=== PATIENT | female | born 1965 | race African-American/Black ===

== ENCOUNTER 2016-10-21 10:17 | Emergency (ER) | payer OTHER ==
[~2016-10-21] VITALS: Ht 167.6 cm; Wt 99.8 kg
[2016-10-21 10:17] VITALS: BP 170/103
[~2016-10-21 10:17] MED LIST: ACCUPRIL40 MG; DIPHENHYDRAMINE25 M3; GLUCOPHAGE1000 MG; HYDROCHLOROTH12.5 MG PO; HYDROCODON-ACE1 EA13; IBUPROFEN 600600 M1 PO; LANTUS SUBQ; NORCO 5-325 TA1 EACH PO; PERCOCET 5-3251 EACH PO; TRIAMCINOLONE A15 G1 TP; VALIUM5 MG PO
[2016-10-21] MEDS ORDERED: TOBREX3.5 GM OP ×3 (10:36→10:41)
[2016-10-21] MEDS ORDERED: AUGMENTIN 875-1 EACH PO ×3 (10:36→10:41)
== END 2016-10-21 11:26 | disposition home or self-care (01) ==
LOC: ER 10:17
DX: H01.001 Unspecified blepharitis right upper eyelid (principal); I10 Essential (primary) hypertension; E11.9 Type 2 diabetes mellitus without complications; Z88.8 Allergy status to other drugs, medicaments and biological substances

== ENCOUNTER 2016-12-26 14:35 | Emergency (ER) | payer OTHER ==
[~2016-12-26] VITALS: Ht 162.6 cm; Wt 76.7 kg
[~2016-12-26 14:35] MED LIST changes: +AUGMENTIN 875-1 EACH PO; +TOBREX3.5 GM OP
[2016-12-26] MEDS ORDERED: PREDNISONE 10 M10 MG PO (14:43)
[2016-12-26 15:00] VITALS: BP 132/89
== END 2016-12-26 15:01 | disposition home or self-care (01) ==
LOC: ER 14:35
DX: M10.9 Gout, unspecified (principal); M79.671 Pain in right foot; I10 Essential (primary) hypertension; E11.9 Type 2 diabetes mellitus without complications; G89.29 Other chronic pain; M54.9 Dorsalgia, unspecified; Z88.8 Allergy status to other drugs, medicaments and biological substances; Z79.4 Long term (current) use of insulin

== ENCOUNTER 2018-06-22 15:50 | Emergency (ER) | payer OTHER ==
[~2018-06-22] VITALS: Ht 165.1 cm; Wt 78.9 kg
[~2018-06-22 15:50] MED LIST changes: +PREDNISONE 10 M10 MG PO
[2018-06-22 17:25] LABS: BASOPHILS 0.7 % (0.0-2.0); EOSINOPHILS 2.6 % (0.0-3.0); HEMATOCRIT 38.1 % (37.0-47.0); HEMOGLOBIN 12.7 gm/dL (12.0-15.0); LYMPHOCYTES 44.4 % (24.0-44.0); MCH 27.4 pg (26.0-34.0); MCHC 33.4 g/dL (28.0-37.0); MONOCYTES 8.9 % (1.0-8.0); PLATELET COUNT 278 thou/uL (150-400); POLYS 43.4 % (36.0-66.0); RBC 4.64 mil/uL (4.20-5.00); RDW 14.5 % (10.5-14.5); WBC 9.2 thou/uL (4.0-11.0)
[2018-06-22 17:33] LABS: CALCIUM 9.2 mg/dL (8.5-10.1); CREATININE 0.9 mg/dL (0.6-1.0); POTASSIUM 3.2 mmol/L (3.5-5.1)
[2018-06-22 17:39] LABS: ALBUMIN 3.5 g/dL (3.4-5.0); TOTAL BILIRUBIN 0.6 mg/dL (<0.1-1.0); TOTAL PROTEIN 7.7 g/dL (6.4-8.2)
[2018-06-22] MEDS ORDERED: KEFLEX500 M1 PO (18:48)
[2018-06-22] MEDS ORDERED: NAPROSYN500 MG PO (18:48)
[2018-06-22 19:02] VITALS: BP 142/80
== END 2018-06-22 19:04 | disposition home or self-care (01) ==
LOC: ER 15:50
PROVIDERS: Physician Assistant
DX: L03.316 Cellulitis of umbilicus (principal); I10 Essential (primary) hypertension; E11.9 Type 2 diabetes mellitus without complications; M54.9 Dorsalgia, unspecified; G89.29 Other chronic pain; Z79.4 Long term (current) use of insulin; Z88.8 Allergy status to other drugs, medicaments and biological substances; Z90.710 Acquired absence of both cervix and uterus

== ENCOUNTER 2018-12-10 13:48 | Emergency (ER) | payer OTHER ==
[~2018-12-10] VITALS: Ht 165.1 cm; Wt 74.4 kg
[~2018-12-10 13:48] MED LIST changes: +KEFLEX500 M1 PO; +NAPROSYN500 MG PO
[2018-12-10 14:23] LABS: HEMATOCRIT 42.2 % (37.0-47.0); MCH 27.4 pg (26.0-34.0); MCHC 33.1 g/dL (28.0-37.0); MCV 82.7 fL (80.0-100.0); RBC 5.11 mil/uL (4.20-5.00); WBC 10.1 thou/uL (4.0-11.0)
[2018-12-10 14:32] LABS: CALCIUM 10.1 mg/dL (8.5-10.1); CREATININE 1.1 mg/dL (0.6-1.0); POTASSIUM 3.5 mmol/L (3.5-5.1)
[2018-12-10 16:00] VITALS: BP 124/74
--- NOTE | 2018-12-10 16:12 | EKG ---
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 : 1965 Requested By: Dipak Oscar Order Number: [id number] MD: Delio Jordan Measurements Intervals [place] Rate: 120 P: 31 AR: 110 QRS: -1 QRSD: 74 T: 13 QT: 318 QTc: 450 Interpretive Statements Sinus tachycardia LVH by voltage Compared to ECG 11/22/2010 19:36:08 Left ventricular hypertrophy now present Electronically Signed On 12-10-2018 16:12:22 CDT by Delio Jordan [email or web address] ��������������������������������������������� <ELECTRONICALLY SIGNED> ���������������������������������������� By: Delio Jordan MD ��������������������������������������������� 12/10/18 1612 1427 1427 MD WALLACE Taveras
== END 2018-12-10 17:10 | disposition home or self-care (01) ==
LOC: ER 13:48
PROVIDERS: Emergency Medicine
DX: M54.5 Low back pain (principal); G89.29 Other chronic pain; I10 Essential (primary) hypertension; E11.9 Type 2 diabetes mellitus without complications; Z88.1 Allergy status to other antibiotic agents; Z79.4 Long term (current) use of insulin

== ENCOUNTER 2019-10-08 10:17 | Inpatient (IN) | payer OTHER | END 2019-10-14 16:00 | disposition home health service (06) | DRG 280 | LOC: ER 10:17 → EROBS 12:55 → 3W 19:35 → 2N 10-11 10:27 | PROVIDERS: ADMIT Internal Medicine | PROC: B216YZZ Fluoroscopy of Right and Left Heart using Other Contrast (ICD-10-PCS; principal; 2019-10-11) | PROC: B2151ZZ Fluoroscopy of Left Heart using Low Osmolar Contrast (ICD-10-PCS; principal; 2019-10-11) | PROC: 4A023N7 Measurement of Cardiac Sampling and Pressure, Left Heart, Percutaneous Approach (ICD-10-PCS; principal; 2019-10-11) | DX: I21.4 Non-ST elevation (NSTEMI) myocardial infarction (principal); J96.01 Acute respiratory failure with hypoxia; I50.21 Acute systolic (congestive) heart failure; N17.0 Acute kidney failure with tubular necrosis; I42.9 Cardiomyopathy, unspecified; I13.0 Hypertensive heart and chronic kidney disease with heart failure and stage 1 through stage 4 chronic kidney disease, or unspecified chronic kidney disease; R91.8 Other nonspecific abnormal finding of lung field; R79.89 Other specified abnormal findings of blood chemistry; M54.9 Dorsalgia, unspecified; E78.5 Hyperlipidemia, unspecified; E11.22 Type 2 diabetes mellitus with diabetic chronic kidney disease; G89.4 Chronic pain syndrome; W18.39XA Other fall on same level, initial encounter; E11.649 Type 2 diabetes mellitus with hypoglycemia without coma; N18.9 Chronic kidney disease, unspecified; Z03.818 Encounter for observation for suspected exposure to other biological agents ruled out; Z88.1 Allergy status to other antibiotic agents; Z79.84 Long term (current) use of oral hypoglycemic drugs; Z79.899 Other long term (current) drug therapy; Y93.89 Activity, other specified; Y92.89 Other specified places as the place of occurrence of the external cause; Y99.8 Other external cause status ==

== ENCOUNTER → 2019-11-11 | Outpatient (CLI) | payer OTHER ==
[~2019-11-11] MED LIST changes: +ACETAMINOPHEN325 M1 PO; +CEFUROXIME500 MG PO; +COREG6.25 MG PO; +KLOR-CON 10 ER10 MEQ PO; +LIPITOR40 MG PO; +LISINOPRIL5 MG PO; +TORSEMIDE10 MG PO; +TRADJENTA5 MG PO
== END ==
LOC: SJCVC 13:28
PROVIDERS: ATTEND Internal Medicine
DX: R94.31 Abnormal electrocardiogram [ECG] [EKG] (principal); I42.8 Other cardiomyopathies; I11.0 Hypertensive heart disease with heart failure; I50.22 Chronic systolic (congestive) heart failure; E11.9 Type 2 diabetes mellitus without complications; E78.5 Hyperlipidemia, unspecified; I25.2 Old myocardial infarction; Z79.899 Other long term (current) drug therapy; Z82.49 Family history of ischemic heart disease and other diseases of the circulatory system

== ENCOUNTER → 2020-01-14 | Outpatient (CLI) | payer OTHER | LOC: SJCVCIMAG 07:21 | PROVIDERS: ATTEND Internal Medicine | DX: I08.8 Other rheumatic multiple valve diseases (principal); I11.0 Hypertensive heart disease with heart failure; I50.22 Chronic systolic (congestive) heart failure; I42.8 Other cardiomyopathies; I25.2 Old myocardial infarction; E11.9 Type 2 diabetes mellitus without complications; Z79.899 Other long term (current) drug therapy ==

== ENCOUNTER → 2020-04-21 | Outpatient (CLI) | payer OTHER | LOC: SJCVC 14:11 | PROVIDERS: ATTEND Internal Medicine | DX: R94.31 Abnormal electrocardiogram [ECG] [EKG] (principal); I11.0 Hypertensive heart disease with heart failure; I50.22 Chronic systolic (congestive) heart failure; E78.5 Hyperlipidemia, unspecified; E11.9 Type 2 diabetes mellitus without complications; I42.9 Cardiomyopathy, unspecified; I25.2 Old myocardial infarction; Z79.899 Other long term (current) drug therapy ==

== ENCOUNTER 2020-05-31 19:25 | Inpatient (IN) | payer OTHER ==
[~2020-05-31] VITALS: Ht 165.1 cm; Wt 73.0 kg
[2020-05-31 19:37] VITALS: BP 170/80
[2020-05-31 19:52] LABS: ABSOLUTE NEUTROPHILS 3.3 thou/uL (1.4-8.2); BASOPHILS 1.1 % (0.0-2.0); HEMATOCRIT 41.9 % (37.0-47.0); HEMOGLOBIN 13.3 gm/dL (12.0-15.0); LYMPHOCYTES 25.4 % (24.0-44.0); MCH 26.8 pg (26.0-34.0); MCHC 31.8 g/dL (28.0-37.0); MCV 84.2 fL (80.0-100.0); MONOCYTES 19.4 % (1.0-8.0); PLATELET COUNT 270 thou/uL (150-400); POLYS 51.1 % (36.0-66.0); RBC 4.98 mil/uL (4.20-5.00); RDW 15.2 % (10.5-14.5); WBC 6.4 thou/uL (4.0-11.0)
[2020-05-31 20:11] LABS: ANION GAP 10 mmol/L (7-16); BUN 6 mg/dL (7-18); CALCIUM 9.2 mg/dL (8.5-10.1); CHLORIDE 101 mmol/L (98-107); CO2 24 mmol/L (21-32); GLUCOSE 230 mg/dL (74-106); POTASSIUM 4.2 mmol/L (3.5-5.1); SODIUM 135 mmol/L (136-145)
[2020-05-31 20:14] LABS: LIPASE 177 U/L (73-393); SGOT 24 U/L (15-37); SGPT 20 U/L (14-59); TOTAL BILIRUBIN 0.8 mg/dL (0.2-1.0); TROPONIN-I <0.06 ng/mL (<0.06)
[2020-05-31 21:18] LABS: URINE BILIRUBIN NEGATIVE (Negative); URINE BLOOD NEGATIVE (Negative); URINE CLARITY CLEAR; URINE COLOR YELLOW; URINE GLUCOSE-RANDOM* NEGATIVE (Negative); URINE KETONES NEGATIVE (Negative); URINE PROTEIN (DIPSTICK) NEGATIVE (Negative)
[2020-05-31 21:23] LABS: URINE LEUKOCYTES-REFLEX 1+ (Negative); URINE NITRITE-REFLEX POSITIVE (Negative)
[2020-05-31 21:26] LABS: CASTS None Seen /LPF (None Seen); CRYSTALS None Seen /LPF (None Seen); MUCUS 0-3 Light strn/LPF (None Seen); SQUAMOUS 0-3 Few /LPF (0-3); URINE RBC None Seen /HPF (0-2); URINE WBC-REFLEX 6-15 Few /HPF (0-5); WBC CLUMPS Few (None Seen)
[2020-05-31] MEDS ORDERED: ZOCOR 10 MG TAB10 M1 PO (23:41)
[2020-05-31] MEDS ORDERED: LISINOPRIL20 MG PO (23:42)
[2020-05-31] MEDS ORDERED: COREG25 M1 PO (23:43)
[2020-06-01 00:01] LABS: CHOLESTEROL 114 mg/dL (<200); HDL CHOLESTEROL 58 mg/dL (>40); LDL CHOLESTEROL 28 mg/dL (<100); TRIGLYCERIDE 142 mg/dL (<150); VLDL 28 mg/dL (<40)
[2020-06-01 00:07] LABS: SERUM ASSESSMENT Clear
--- NOTE | 2020-06-01 07:48 | EKG ---
[address] [place] [address] ELECTROCARDIOGRAM REPORT Name: DANNI ALANIZ Room #: 170-6 ADM IN M.R.#: [id number] Admission: 05/31/20 Attend Phys: Bridger Recinos MD Discharge: Date of : 63 Report #: [id number] [facility] ED Test Date: 2020-05-31 Test Time: 19:31:01 Pat Name: DANNI ALANIZ Department: Room: 170 Gender: F Admissions Supervisor: : 1965 Requested By: Angel Luis Blanco Order Number: [id number] MD: George Pham Measurements Intervals [place] Rate: 103 P: 33 PA: 115 QRS: -14 QRSD: 72 T: 62 QT: 323 QTc: 423 Interpretive Statements Sinus tachycardia Abnormal R-wave progression, late transition Inferior infarct, old Baseline wander in lead(s) II,aVF,V4,V5,V6 Compared to ECG 10/10/2019 08:15:34 Heart rate has increased T-wave abnormality no longer present Electronically Signed On 06-01-2020 7:48:12 SCHOOL PS[employer]CH[employer] EXAMINER by George Pham [email or web address] <ELECTRONICALLY SIGNED> By: George Pham MD, [facility] 06/01/20 0748 30 30 George Pham MD, [facility] /EPI
[2020-06-01 10:23] VITALS: BP 155/80
[2020-06-01 14:56] VITALS: BP 123/78
[2020-06-01 18:30] VITALS: BP 164/60
[2020-06-01 21:59] VITALS: BP 142/80
[2020-06-02 00:06] LABS: GLYCOHEMOGLOBIN (HGB A1C) 12.4 % (4.8-5.6)
[2020-06-02 03:37] VITALS: BP 156/81
--- NOTE | 2020-06-02 08:51 | HC ---
[facility] [place] [address] CONSULTATION Name: DANNI ALANIZ Room #: 170-16 ADM IN M.R.#: [id number] Admission: 05/31/20 Attend Phys: Bridger Recinos MD Discharge: Date of : 63 Report #: [id number] THIS REPORT FOR: cc: George Pham MD [facility] George Pham MD [facility] Angel Barnard MD ~ DATE OF SERVICE: 06/01/2020 INFECTIOUS DISEASE CONSULTATION ATTENDING PHYSICIAN: Dr. Recinos. REASON FOR EVALUATION: COVID-19 infection. SUBJECTIVE: Chart reviewed, the patient examined. This is a 55-year-old woman with known history of diabetes mellitus, hypertension, chronic pain issues, also urinary tract infections, who presented to the Emergency Room with complaints of chest pain. She describes generalized aches and pains as well. She noted had been feeling poorly over the last 72 hours, seems to have some component of pleuritic type in character. On initial evaluation, was confirmed to be COVID positive. Chest x-ray was undertaken, which showed minimal bibasilar opacities. D-dimer is elevated at 0.64. Underwent CT, which showed no evidence of PE, likely more typical of scarring on the bases. Urinalysis did show 6-15 white cells, 10-30 bacteria. Lactic acid was elevated at 3.3. She had negative troponin, normal ferritin. Calcitonin was in the normal range as well. Blood cultures collected at time of admission are sterile thus far. She was empirically started on piperacillin and tazobactam. ALLERGIES: LISTED TO CEFAZOLIN, WHICH CAUSES A RASH, although apparently tolerates ceftriaxone. CURRENT MEDICATIONS: Include atorvastatin, enoxaparin, ascorbic acid, torsemide, insulin glargine, lisinopril, famotidine, carvedilol, zinc, Zosyn, methylprednisolone, ondansetron. PAST MEDICAL HISTORY: Positive for diabetes mellitus, hypertension, chronic back pain. SOCIAL HISTORY: Nonsmoker, no ethanol, no illicit drug use. FAMILY HISTORY: Noncontributory. REVIEW OF SYSTEMS: Otherwise, unremarkable 10-point review of systems. PHYSICAL EXAMINATION: [facility] [address] [place] [address] CONSULTATION Name: DANNI ALANIZ Room #: 170-16 [facility]#: [id number] Admission: 05/31/20 Attend Phys: Bridger Recinos MD Discharge: Date of : 63 Report #: [id number] GENERAL: She is alert, cooperative, appropriate. She is in moderate distress, appears uncomfortable. She is generally lucid, reasonably well nourished. VITAL SIGNS: Temperature on admission 100.7, more recently 98.6, pulse 87, respirations 15, blood pressure 130/71. SKIN: Warm, dry, no rashes. HEENT: Normocephalic. Extraocular muscles are intact. NECK: Supple. LUNGS: Diminished breath sounds. Few scattered crackles at the bases. HEART: Regular. I do not appreciate a murmur. ABDOMEN: Soft, nontender, nondistended, no peritoneal signs. GENITOURINARY AND RECTAL: Deferred. LABORATORY DATA: CRP less than 2.0, lactic acid now 1.6, down from 3.3 serially. Troponin less than 0.06. Sed rate of 23. On admission sodium 135, potassium 4.2, chloride 101, bicarbonate 24, anion gap of 10, BUN and creatinine 6 and 1.0, glucose of 230. LFTs unremarkable. Albumin of 4, total protein of 8.0. ProBNP of 85. CBC: White count 6.4, H and H 13.3 and 41.9, platelets of 270. ASSESSMENT: 1. COVID-19 infection. 2. Diabetes mellitus. 3. Hypertension. PLAN: We will continue therapy with corticosteroids. We will add ivermectin. At this point we will hold off on remdesivir given the fact that there is no radiographic or clinical evidence of pneumonitis at this point, noting fevers. She is maintained on ambient air. Certainly, we will monitor expectantly. In the event of worsening respiratory situation, would consider remdesivir as well. We will continue vitamins, add incentive spirometry. Secondly, we will continue antibacterials to treat presumptive urinary tract infection as well, not entirely clear the etiology of the chest pain. We will see how she does clinically; we need to consider GI related etiology as well. <ELECTRONICALLY SIGNED> By: Angel Barnard MD 06/02/20 0851 1342 1924 Angel Barnard MD /nt
[2020-06-02 09:46] VITALS: BP 180/97
[2020-06-02 14:18] VITALS: BP 154/76
--- NOTE | 2020-06-02 16:53 | NUR ---
Pt is a 55 year old female presenting to the ED c/o centralized chest pain with radiation to BUE. Patient admits with COVID-19 infection/complicated urinary tract infection/diabetes mellitus/hypertension we will continue with directed therapy coronavirus with corticosteroids and ivermectin continue vitamins as empiric therapy for suspected complicated urinary tract infection, await culture results per ID. Patient lives at home with spouse Carlos at H [phone] and C of [phone]. Attempted to call x3 without answer. Of note patient is listed as A&O x4. Patient last seen by CM on 10-14-2019 and discharged home with [facility]. CM will follow for discharge needs and planning.
[2020-06-02 17:08] VITALS: BP 140/86
[2020-06-02 17:26] VITALS: BP 170/88
[2020-06-02 19:31] VITALS: BP 172/86
--- NOTE | 2020-06-02 21:28 | NUR ---
PT ADMITTED FROM ED, PT STATED SHE CAME TO ED ON MONDAY NIGHT WITH BILATERAL ARM PAIN AND CHEST PAIN, THAT THEY GAVE HER SOME MEDICINE AND IT HAS NOT RETURNED. DR WORTHY CALLED AND PT TO BE NPO P MN, AND PT INFORMED. PT AOX4, NO CHEST PAIN, STEADY GAIT. PT VERBALIZED UNDERSTANDING THAT SHE HAS UTI. PT PROVIDED HS SNACK. PT STATED SHE LIVES WITH HER AND GRANDCHILDREN, THAT HER IS WAITING HIS TEST RESULTS. PT DID SHOWER THIS EVENING. PT ONLY EATS FISH, NO OTHER MEAT. MED HX THN, DM, BACK PAIN.
[2020-06-03 00:18] VITALS: BP 141/82
[2020-06-03 04:04] VITALS: BP 131/80
--- NOTE | 2020-06-03 06:26 | NUR ---
PTS HS FSBS WAS TAKEN AFTER PT HAD DINNER AND IV STEROIDS. PT NPO P MN.
[2020-06-03 07:59] VITALS: BP 168/83
[2020-06-03 15:41] VITALS: BP 137/73
[2020-06-04 04:12] VITALS: BP 137/77
--- NOTE | 2020-06-04 06:17 | NUR ---
FOLLOWING POC WITH IVPB ANTIBIOTICS. PT REQUESTED PAIN MEDICATION FOR BACK PAIN. GAVE PO PAIN MED WITH SUCCESS AND PT GOT GREAT RELIEF. VSS.
[2020-06-04 08:32] VITALS: BP 157/97
[2020-06-04] MEDS ORDERED: CIPRO500 MG PO (12:24)
[2020-06-04] MEDS ORDERED: ACEROLA C500 MG PO (12:24)
[2020-06-04] MEDS ORDERED: HUMALOG100 UNIT/1 SUBQ (12:24)
[2020-06-04] MEDS ORDERED: VITAMIN D325 MC1 PO (12:24)
[2020-06-04] MEDS ORDERED: HYDROCODON-ACE1 EAC7 PO (12:24)
[2020-06-04] MEDS ORDERED: LANTUS SUBQ (12:24)
[2020-06-04] MEDS ORDERED: PEPCID20 MG PO (12:24)
[2020-06-04] MEDS ORDERED: PREDNISONE 20 M20 M1 PO (12:24)
[2020-06-04] MEDS ORDERED: ZINC SULFATE220 MG PO (12:24)
--- NOTE | 2020-06-04 14:35 | NUR ---
INITIAL ASSESSMENT/DISCHARGE NOTE: Received consult. AVERY reviewed chart and spoke with nursing and attending physician. Pt was admitted from home due to chest pain/UTI/fever. Pt placed in Enhanced Isolation due to COVID. Pt is medically stable for discharge home today. SW spoke with pt via phone. Introduced role of SW. Pt is alert/orientated x 4. Pt reports she lives at home with her and family. Prior to admission, pt was independent with ADLs. No hx of HH or post-acute placement. Pt has 6 steps to enter her home and no steps inside. Pt able to navigate stairs independently. Pt's PCP is Dr. Juana Madera at [facility]. No discharge needs identified at this time. SW is following to assist should needs arise.
--- NOTE | 2020-06-04 17:00 | NUR ---
ASSUMED CARE OF PT AT 0700. PT AOX4 IN NO ACUTE DISTRESS. REPORTS FEELING GENERALLY UNWELL, BUT UNABLE TO BE SPECIFIC. VITALS STABLE. BLOOD SUGARS IMPROVING. IVF INFUSING PER ORDER. CLALS APPROPRIATELY. ANTICIPATE D/C LATER TODAY.
[2020-06-04 17:10] VITALS: BP 142/88
[2020-06-04 17:44] VITALS: BP 142/88
[2020-06-04 17:48] VITALS: BP 142/88
== END 2020-06-04 18:00 | disposition home or self-care (01) | DRG 871 ==
LOC: ER 19:25 → 3W 22:50 → EROBS 22:50 → 3W 06-02 18:53
PROVIDERS: Emergency Medicine; Nurse Practitioner Family; ADMIT Hospitalist; ATTEND Hospitalist
DX: A41.9 Sepsis, unspecified organism (principal); U07.1 COVID-19; N39.0 Urinary tract infection, site not specified; I42.8 Other cardiomyopathies; G89.29 Other chronic pain; M54.9 Dorsalgia, unspecified; M10.9 Gout, unspecified; I50.9 Heart failure, unspecified; E11.65 Type 2 diabetes mellitus with hyperglycemia; R07.89 Other chest pain; I11.0 Hypertensive heart disease with heart failure; I20.9 Angina pectoris, unspecified; Z88.8 Allergy status to other drugs, medicaments and biological substances; Z90.710 Acquired absence of both cervix and uterus; Z79.899 Other long term (current) drug therapy
CPT/HCPCS: 10879

== ENCOUNTER 2020-06-09 15:03 | Inpatient (IN) | payer OTHER ==
[~2020-06-09] VITALS: Ht 165.1 cm; Wt 82.1 kg
[~2020-06-09 15:03] MED LIST changes: +ACEROLA C500 MG PO; +CIPRO500 MG PO; +COREG25 M1 PO; +HUMALOG100 UNIT/1 SUBQ; +HYDROCODON-ACE1 EAC7 PO; +LISINOPRIL20 MG PO; +PEPCID20 MG PO; +PREDNISONE 20 M20 M1 PO; +VITAMIN D325 MC1 PO; +ZINC SULFATE220 MG PO; +ZOCOR 10 MG TAB10 M1 PO
[2020-06-09 15:39] VITALS: BP 95/80
[2020-06-09 17:09] LABS: ABSOLUTE NEUTROPHILS 5.9 thou/uL (1.4-8.2); BASOPHILS 0.2 % (0.0-2.0); EOSINOPHILS 0.6 % (0.0-3.0); HEMATOCRIT 42.2 % (37.0-47.0); HEMOGLOBIN 13.3 gm/dL (12.0-15.0); LYMPHOCYTES 37.2 % (24.0-44.0); MCH 26.4 pg (26.0-34.0); MCHC 31.6 g/dL (28.0-37.0); MCV 83.6 fL (80.0-100.0); MONOCYTES 11.2 % (1.0-8.0); PLATELET COUNT 261 thou/uL (150-400); POLYS 50.8 % (36.0-66.0); RBC 5.04 mil/uL (4.20-5.00); RDW 15.3 % (10.5-14.5); WBC 11.6 thou/uL (4.0-11.0)
[2020-06-09 17:15] LABS: ANION GAP 15 mmol/L (7-16); BUN 23 mg/dL (7-18); CALCIUM 9.1 mg/dL (8.5-10.1); CHLORIDE 98 mmol/L (98-107); CO2 25 mmol/L (21-32); CREATININE 2.1 mg/dL (0.6-1.0); GLUCOSE 176 mg/dL (74-106); POTASSIUM 3.7 mmol/L (3.5-5.1); SODIUM 138 mmol/L (136-145)
[2020-06-09 17:25] LABS: ALBUMIN 3.4 g/dL (3.4-5.0); SGOT 18 U/L (15-37); SGPT 17 U/L (14-59); TOTAL BILIRUBIN 0.6 mg/dL (0.2-1.0); TOTAL PROTEIN 7.8 g/dL (6.4-8.2); TROPONIN-I <0.06 ng/mL (<0.06)
[2020-06-10 07:00] VITALS: BP 128/66
--- NOTE | 2020-06-10 07:26 | EKG ---
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 : 1965 Requested By: Josué Das Order Number: [id number] MD: Jacobo Frederick Measurements Intervals [place] Rate: 76 P: 44 ID: [id number] QRS: -12 QRSD: 73 T: 123 QT: 368 QTc: 414 Interpretive Statements Sinus rhythm Abnormal R-wave progression, late transition LVH with secondary repolarization abnormality Inferior infarct, old Baseline wander in lead(s) III,V3,V4,V5,V6 Compared to ECG 05/31/2020 19:31:01 Left ventricular hypertrophy now present Early repolarization now present Sinus tachycardia no longer present Myocardial infarct finding still present Electronically Signed On 06-10-2020 7:26:11 TRAVEL DIRECTOR by Jacobo Frederick [email or web address] <ELECTRONICALLY SIGNED> By: Jacobo Frederick MD, FACC 06/10/20 0726 1550 1550 Jacobo Frederick MD, FAC /EPI
[2020-06-10 11:06] VITALS: BP 144/77
--- NOTE | 2020-06-10 11:28 | NUR ---
INITIAL ASSESSMENT: Received consult. AVERY reviewed chart and spoke with nursing and attending physician. Pt was admitted from home due to chest pain/UTI/fever. Pt placed in Enhanced Isolation due to COVID. Pt is on IV abx and IV steroids. Pt is afebrile and not requiring O2. SW spoke with pt via phone. Introduced role of SW. Pt is alert/orientated x 4. Pt reports she lives at home with her and family. Prior to admission, pt was independent with ADLs. No hx of HH or post-acute placement. Pt has 6 steps to enter her home and no steps inside. Pt able to navigate stairs independently. Pt's PCP is Dr. Juana Madera at [facility]. AVERY is following to assist as needed with discharge planning.
[2020-06-10 15:08] VITALS: BP 138/83
--- NOTE | 2020-06-10 16:55 | NUR ---
PT ADMITTED FROM ER ABOUT 0830AM, PT IS A&OX3, PT'S SOB HAS IMPROVED , PT IS ON ROOM AIR , PT'S VS ARE STABLE, PT STARTS IV ABX FOR PNEUMONIA, PT IS ON COVID ISOLATION, PT GETS UP TO CHAIR , PT DENIES PAIN AND SOB AT THIS TIME.
[2020-06-10 20:11] VITALS: BP 132/86
[2020-06-11 04:13] VITALS: BP 165/101
--- NOTE | 2020-06-11 06:05 | NUR ---
PT UP TO BATHROOM AD RALPH. VSS AND 02 SATS ON ROOM AIR IN 90'S. FOLLOWING POC WITH IVF/IVPB. PT HAS NO COMPLAINTS OVERNIGHT.
[2020-06-11 07:00] VITALS: BP 183/104
[2020-06-11 11:03] VITALS: BP 164/88
--- NOTE | 2020-06-11 11:35 | NUR ---
SW reviewed chart and spoke with nursing and attending physician. Pt remains in Enhanced Isolation due to COVID. Pt is afebrile and not requiring O2. Pt is on IV abx and IV steroids. Discharge home is anticipated for tomorrow. Plan is for pt to discharge home when medically stable. AVERY is following to assist as needed with discharge planning.
[2020-06-11 13:50] VITALS: BP 133/81
[2020-06-12 05:33] VITALS: BP 134/79
[2020-06-12 05:35] VITALS: BP 154/73
[2020-06-12 07:25] VITALS: BP 185/77
--- NOTE | 2020-06-12 07:59 | NUR ---
pt is good spirits about dc possible today. vss, no issues overnight. poc with ivf/ivpb.
[2020-06-12] MEDS ORDERED: AUGMENTIN 875-1 EACH PO (09:26)
[2020-06-12] MEDS ORDERED: PREDNISONE 5 MG5 M1 PO (09:26)
[2020-06-12] MEDS ORDERED: ADULT TUSS100 MG/5 M PO (09:34)
[2020-06-12 09:57] VITALS: BP 185/77
--- NOTE | 2020-06-12 10:37 | NUR ---
DISCHARGE NOTE: AVERY reviewed chart and spoke with nursing and attending physician. Pt is medically stable to discharge home today. No discharge needs identified at this time. Pt's family will provide transportation home. SW is available to assist should needs arise.
--- NOTE | 2020-06-12 13:17 | NUR ---
ASSUMED PATIENT CARE AT 0700. A/O X4 NODISDRESS NOTED. DC TO HOME NOW.
== END 2020-06-12 13:22 | disposition home or self-care (01) | DRG 871 ==
LOC: ER 15:03 → EROBS 20:25 → 3W 20:25
PROVIDERS: Emergency Medicine; ADMIT Hospitalist; ATTEND Hospitalist
DX: A41.89 Other specified sepsis (principal); U07.1 COVID-19; J18.9 Pneumonia, unspecified organism; N17.9 Acute kidney failure, unspecified; I42.9 Cardiomyopathy, unspecified; I50.9 Heart failure, unspecified; G89.29 Other chronic pain; M54.9 Dorsalgia, unspecified; M10.9 Gout, unspecified; I11.0 Hypertensive heart disease with heart failure; E11.65 Type 2 diabetes mellitus with hyperglycemia; R07.89 Other chest pain; Z88.8 Allergy status to other drugs, medicaments and biological substances; Z90.710 Acquired absence of both cervix and uterus; Z79.899 Other long term (current) drug therapy
CPT/HCPCS: 10879

== ENCOUNTER → 2020-10-20 | Outpatient (CLI) | payer OTHER ==
[~2020-10-20] MED LIST changes: +ADULT TUSS100 MG/5 M PO; +PREDNISONE 5 MG5 M1 PO
== END ==
LOC: SJCVC 14:03
PROVIDERS: ATTEND Internal Medicine
DX: I11.0 Hypertensive heart disease with heart failure (principal); I50.22 Chronic systolic (congestive) heart failure; E78.5 Hyperlipidemia, unspecified; E11.9 Type 2 diabetes mellitus without complications; I42.9 Cardiomyopathy, unspecified; I25.2 Old myocardial infarction; Z88.1 Allergy status to other antibiotic agents; Z79.899 Other long term (current) drug therapy; Z82.49 Family history of ischemic heart disease and other diseases of the circulatory system

== ENCOUNTER → 2021-04-21 | Outpatient (CLI) | payer OTHER | LOC: SJCVCIMAG 08:23 | PROVIDERS: ATTEND Internal Medicine | DX: I07.1 Rheumatic tricuspid insufficiency (principal); I11.0 Hypertensive heart disease with heart failure; I50.32 Chronic diastolic (congestive) heart failure; E78.5 Hyperlipidemia, unspecified; E11.9 Type 2 diabetes mellitus without complications; I42.9 Cardiomyopathy, unspecified; Z88.8 Allergy status to other drugs, medicaments and biological substances; Z79.899 Other long term (current) drug therapy ==